=== PATIENT | male | born 1965 | race Caucasian/White ===

== ENCOUNTER 2019-01-09 11:18 | Emergency (ER) | payer OTHER ==
[~2019-01-09] VITALS: Ht 185.4 cm; Wt 89.6 kg
== END 2019-01-09 12:05 | disposition home or self-care (01) ==
LOC: ED 11:18
DX: S61.211A Laceration without foreign body of left index finger without damage to nail, initial encounter (principal); Z00.8 Encounter for other general examination; Z90.89 Acquired absence of other organs; W26.0XXA Contact with knife, initial encounter
CPT/HCPCS: 99282

== ENCOUNTER 2021-07-25 08:18 | Emergency (ER) | payer OTHER ==
[~2021-07-25] VITALS: Ht 185.4 cm; Wt 88.6 kg
[2021-07-25] MEDS ORDERED: NAPROSYN500 MG PO (08:37)
== END 2021-07-25 09:05 | disposition home or self-care (01) ==
LOC: ED 08:18
DX: S43.401A Unspecified sprain of right shoulder joint, initial encounter (principal); X58.XXXA Exposure to other specified factors, initial encounter; Y99.0 Civilian activity done for income or pay
CPT/HCPCS: 73030; 99283-25

== ENCOUNTER 2023-07-02 07:57 | Emergency (ER) | payer OTHER, BC ==
[~2023-07-02] VITALS: Ht 185.4 cm; Wt 88.1 kg
[~2023-07-02 07:57] MED LIST: NAPROSYN500 MG PO
[2023-07-02] MEDS ORDERED: NAPROSYN500 MG PO (08:19)
[2023-07-02] MEDS ORDERED: PEPCID40 MG PO (08:19)
[2023-07-02 08:55] VITALS: BP 125/82
== END 2023-07-02 08:55 | disposition home or self-care (01) ==
LOC: ED 07:57
DX: M23.91 Unspecified internal derangement of right knee (principal)
CPT/HCPCS: 73560